=== PATIENT | male | born 1970 | race Caucasian/White ===

== ENCOUNTER 2019-04-20 06:01 | Day surgery (SDC) | payer BC ==
[2019-04-20] MEDS ORDERED: BUPIVACAINE 0.5% (SDV) 30 ML INJ ×2 (07:42→16:29)
[2019-04-20] MEDS ORDERED: LIDOCAINE 1% (MPF) 30 ML INJ (07:42)
[2019-04-20] MEDS ORDERED: FENTAnyl 50 MCG/ML VIAL (08:07)
[2019-04-20] MEDS ORDERED: MIDAZOLAM 1 MG/ML 2 ML INJ (08:07)
[2019-04-20] MEDS ORDERED: LIDOCAINE 2% (SDV) 5 ML INJ (08:07)
[2019-04-20] MEDS ORDERED: PROPOFOL 20 ML (08:07)
[2019-04-20] MEDS ORDERED: DIPHENHYDRAMINE 50 MG INJ IV (08:30)
[2019-04-20] MEDS ORDERED: PROCHLORPERAZINE 10 MG INJ IV (08:30)
[2019-04-20] MEDS ORDERED: MEPERIDINE 25 MG INJ IV (08:30)
[2019-04-20] MEDS ORDERED: HYDROmorphONE 1 MG/5 ML IV SYRINGE IV ×3 (08:30)
[2019-04-20] MEDS ORDERED: CEFAZOLIN 1 GM INJ (08:30)
[2019-04-20] MEDS ORDERED: FENTAnyl 50 MCG/ML VIAL IV (08:30)
[2019-04-20] MEDS ORDERED: OXYCODONE/ACETAMINOPHEN (5/325) TAB PO (08:30)
[2019-04-20] MEDS ORDERED: ONDANSETRON 4 MG INJ (08:32)
[2019-04-20] MEDS ORDERED: DEXAMETHASONE 4 MG/ML 5 ML INJ (08:32)
[2019-04-20] MEDS: BUPIVACAINE 0.25% (MPF) 30 ML INJ (08:44)
[2019-04-20] MEDS ORDERED: HYDROmorphONE 2 MG/ML SYG (09:43)
[2019-04-20] MEDS: ONDANSETRON 4 MG INJ IV (12:25)
[2019-04-20] MEDS: FLUMAZENIL 0.5 MG INJ IV (12:36)
[2019-04-20] MEDS ORDERED: NALOXONE (0.4 MG/ML) INJ (12:37)
[2019-04-20] MEDS: NALOXONE (0.4 MG/ML) INJ IV (12:41)
[2019-04-20] MEDS ORDERED: BACITRACIN/POLYMYXIN 28.35 GM OINT TOP (16:30)
== END 2019-04-20 16:59 | disposition home or self-care (01) ==
LOC: SDS 06:01
DX: M19.142 Post-traumatic osteoarthritis, left hand (principal)
CPT/HCPCS: 26860; 73130-LT; 88304; 88311